=== PATIENT | female | born 1965 | race Caucasian/White ===

== ENCOUNTER 2025-03-04 16:48 | Emergency (ER) | payer BC ==
[~2025-03-04] VITALS: Ht 167.6 cm; Wt 90.9 kg
[2025-03-04 17:30] LABS: BASOPHILS # (AUTO) 0.1 X10'3 (0-0.2); BASOPHILS % (AUTO) 0.5 % (0-1); EOSINOPHILS # (AUTO) 0.2 X10'3 (0-0.9); EOSINOPHILS % (AUTO) 2.1 % (0-6); HEMATOCRIT 39.2 % (35.0-45.0); HEMOGLOBIN 13.4 g/dl (12.0-16.0); LYMPHOCYTES # (AUTO) 3.1 X10'3 (1.1-4.8); LYMPHOCYTES % (AUTO) 30.4 % (21-51); MEAN CORPUSCULAR HEMOGLOBIN 28.5 PG (27.0-31.0); MEAN CORPUSCULAR HGB CONC 34.2 g/dL (33.0-36.5); MEAN CORPUSCULAR VOLUME 83.4 FL (78-98); MEAN PLATELET VOLUME 8.3 FL (7.4-10.4); MONOCYTES # (AUTO) 0.7 X10'3 (0-0.9); MONOCYTES % (AUTO) 6.6 % (2-12); NEUTROPHILS # (AUTO) 6.1 X10'3 (1.8-7.7); NEUTROPHILS % (AUTO) 60.4 % (42-75); PLATELET COUNT 282 X10'3 (140-440); WHITE BLOOD COUNT 10.1 X10'3 (4.5-11.0)
[2025-03-04 17:38] LABS: ALBUMIN 3.8 G/DL (3.4-5.0); ANION GAP 12 (8-16); BLOOD UREA NITROGEN 21 MG/DL (7-18); BUN/CREATININE RATIO 17.9 (10.0-20.0); CALCIUM 9.3 MG/DL (8.5-10.1); CHLORIDE 103 MMOL/L (99-107); CREATININE 1.17 MG/DL (0.40-0.90); GLUCOSE 151 MG/DL (70-104); POTASSIUM 3.8 MMOL/L (3.5-5.1); SODIUM 141 MMOL/L (135-145); TOTAL CARBON DIOXIDE 25.6 MMOL/L (24-32); eCRCL 47 ML/MIN; eGFR 47 ML/MIN
--- NOTE | 2025-03-04 17:50 | RADIOLOGY REPORT ---
CHEST RADIOGRAPH Indication: Pain after fall Technique: Single frontal view of the chest was obtained Comparison: None FINDINGS: Lines and Tubes: None Lungs: No focal consolidation. Mild interstitial prominence. Pleura: No effusion. No pneumothorax. Cardiomediastinal contours: Mild cardiomegaly Bones: There appears to be acute fracture of the left humeral head Partially visualized cervical fixa tion hardware. IMPRESSION: Mild pulmonary vascular congestion . Acute mildly displaced fracture of the left lateral humeral head.
--- NOTE | 2025-03-04 17:52 | RADIOLOGY REPORT ---
CLINICAL INDICATION: Pain after fall TECHNIQUE: 3 radiographic views of the left humerus were obtained. Comparison: None FINDINGS/IMPRESSION: There is acute mildly displaced fracture of the left humerus greater tuberosity. Hyperdensity superior to the humeral head which may represent calcific tendinitis versus avulsed disp laced bony fragment of unknown chronicity.
[2025-03-04] MEDS: acetaminophen 325mg tablet PO ONE (17:59)
[2025-03-04] MEDS: traMADol 50MG tablet PO ONE (17:59)
[2025-03-04] MEDS: metoclopramide 10mg tablet PO ONE (18:00)
--- NOTE | 2025-03-04 18:10 | Physician Documentation ---
History of Present Illness ~ Chief Complaint: Mechanical Fall Stated Complaint: FALL Time Seen by MD: 17:02 Mode of Arrival: EMS HPI 59-year-old female patient brought to the emergency room by ambulance for ground level mechanical fall on left arm and sustained injury to the upper arm. Also complaining of ribcage pain bilaterally more so on the left side. No head strike and no other injuries. Medication Reconciliation Allergies: Coded Allergies: hydrocodone (Unverified Allergy, Unknown, VOMITING, 03/04/25) morphine (Unverified Allergy, Unknown, ABDOMINAL PAIN, 03/04/25) Scheduled Ondansetron 8mg ODT (Ondansetron Odt), 1 TAB PO Q6H Scheduled PRN Tramadol HCl (Tramadol HCl), 1 TAB PO Q6H PRN PRN for pain Review of Systems ROS As stated above in the HPI, otherwise all systems are reviewed and negative. Physical Exam Vital Signs: Temperature: 97.0, Source: Temporal, Heart Rate: 95, Respiratory Rate: 19, BP: 166/87, Pulse Oximetry: 93, Weight: 90.910 Physical Exam Reviewed vital signs and they are well within normal range. Const: Not in acute cardiopulmonary distress Head: Atraumatic Eyes: Normal Conjunctiva ENT: Normal External Ears, Nose and Mouth. Moist mucous membrane Neck: Full range of motion. No meningismus Resp: Clear to auscultation bilaterally. Normal work of breathing Cardio: Regular rate and rhythm, no murmurs. Skin well perfused Abd: Soft, non-tender, non-distended. Normal bowel sounds. No rebound or gu arding Skin: No petechiae or rashes. Warm and dry Back: No midline or flank tenderness Ext: No cyanosis, or edema Local examination of the left upper lung arm: Mild swelling and tenderness. Distal circulation sensation intact. And distal movements all intact Neuro: Awake and alert Psych: Normal Mood and Affect Progress Results/Orders Results/Orders Medications Received in ER Medications (Trade) Dose Ordered Sig/Elvis Route PRN Reason Start Time Stop Time Status Last Admin Dose Admin (Ultram tablet) 100 mg ONCE ONCE PO 03/04/25 17:40 03/04/25 17:41 DC 03/04/25 17:59 100 MG (Reglan tablet) 10 mg ONCE ONCE PO 03/04/25 17:40 03/04/25 17:41 DC 03/04/25 18:00 10 MG (Tylenol tablet) 650 mg ONCE ONCE PO 03/04/25 17:40 03/04/25 17:41 DC 03/04/25 17:59 650 MG Vital Signs 03/04/25 03/04/25 03/04/25 03/04/25 16:54 17:59 18:07 18:33 Temp 97.0 Pulse 95 95 Resp 16 19 22 16 B/P (MAP) 166/87 161/89 (113) Pulse Ox 93 96 Laboratory Tests Test 03/04/25 17:17 White Blood Count 10.1 Red Blood Count 4.70 Hemoglobin 13.4 Hematocrit 39.2 Mean Corpuscular Volume 83.4 Mean Corpuscular Hemoglobin 28.5 Mean Corpuscular Hemoglobin Concent 34.2 Red Cell Distribution Width 14.0 Platelet Count 282 Mean Platelet Volume 8.3 Neutrophils (%) (Auto) 60.4 Lymphocytes (%) (Auto) 30.4 Monocytes (%) (Auto) 6.6 Eosinophils (%) (Auto) 2.1 Basophils (%) (Auto) 0.5 Neutrophils # (Auto) 6.1 Lymphocytes # (Auto) 3.1 Monocytes # (Auto) 0.7 Eosinophils # (Auto) 0.2 Basophils # (Auto) 0.1 CBC Comment Sodium Level 141 Potassium Level 3.8 Chloride Level 103 Carbon Dioxide Level 25.6 Anion Gap 12 Blood Urea Nitrogen 21 H Creatinine 1.17 H Estimated GFR/1.73 m2 47 BUN/Creatinine Ratio 17.9 Glucose Level 151 H Calcium Level 9.3 Albumin 3.8 Chemistry Comments Medical Decision Making Findings During the physical examination, the findings suggestive of acute life- threatening condition such as JVD, tracheal deviation, acidotic breathing, noisy stridorous breath sounds, pulses paradoxus, muffled heart sounds, unequal breath sounds, abdominal rigidity and rebound tenderness, focal neurological deficits, cool clammy skin, severe hypotension, severe tachycardia or bradycardia are absent. The physical examination is consistent with the proximal humerus fracture with mild to moderate displacement. Left humerus x-ray shows fracture of the greater tuberosity with mild displacement. (radiology report.) Chest x-ray does not reveal any pneumothorax. No displaced rib fracture noted. Patient is medicated with tramadol and discharged from the emergency room with orthopedic follow up appointment with Dr. Torres who is on-call today. DISCLAIMER Inadvertent spelling and grammatical errors,inadvertent credit and collections analyst errors,syntax errors, grammatical errors, and spelling errors are likely due to EMR/dictation software use and do not reflect on the overall quality of patient care. Note that the electronic time recorded on this note does not necessarily reflect the actual time of the patient encounter. Departure Disposition: 01 HOME / SELF CARE / HOMELESS Impression: Primary Impression: Proximal humerus fracture Additional Impression: Chest wall contusion Additional Impression Text Discharge Instructions: Humerus Fracture Treated With Immobilization Additional Instructions: Thank you for coming to our Emergency Department today. Please keep the arm sling on at all times except for cleaning and changing clothing. Medication as instructed. Please call Dr. Torres' office, tomorrow morning. Please ask your nurse or provider if you have questions about your care today and do not leave until all your questions have been answered. Please use any medications given as directed and follow-up with your doctor (or the doctor you were referred to) in the next 1-3 days. Your primary care doctor can help to coordinate outpatient specialty care and provide authorization for specialty referral as needed. If you do not have a primary care doctor you may follow up at a [facility]. You may also use motrin and tylenol as needed for fever and/or pain unless instructed otherwise by your provider or nurse. Indications for more urgent follow-up have been discussed, but you may return to the Emergency Department at ANY time for any worrisome or worsening symptoms. Referrals: NO PRIMARY CARE PROVIDER (PCP) NATHEN TORRES MD Prescriptions Ondansetron 8mg ODT (Ondansetron Odt) 8 Mg Tab.rapdis 1 TAB PO Q6H for nausea/vomiting for 3 Days, #12 TAB 0 Refills Prov: ENRIQUE CHANEL MD 03/04/25 Tramadol HCl (Tramadol HCl) 50 Mg Tablet 1 TAB PO Q6H PRN PRN for pain for 7 Days, #28 TAB Prov: ENRIQUE CHANEL MD 03/04/25 Signature Scribe Signature: None Attestation: My dictation MARYLU COOK MD Mar 04, 2025 18:10 ENRIQUE CHANEL MD Mar 04, 2025 19:52
[2025-03-04] MEDS ORDERED: TRAM50TA2 PO (18:39)
[2025-03-04] MEDS ORDERED: ONDA-245 PO (18:39)
[2025-03-04 20:05] VITALS: BP 169/97; PULSE 98; RESP 16; TEMP 97.7; O2SAT 96
[2025-03-08] MEDS ORDERED: ONDA-245 PO (19:37)
[2025-03-08] MEDS ORDERED: HYDR-3965 PO (19:37)
[2025-03-09] MEDS ORDERED: HYDR-3965 PO (11:28)
== END 2025-03-04 20:25 | disposition home or self-care (01) ==
LOC: ER 16:48
DX: S42.302A Unspecified fracture of shaft of humerus, left arm, initial encounter for closed fracture (principal); W18.30XA Fall on same level, unspecified, initial encounter; S20.219A Contusion of unspecified front wall of thorax, initial encounter; Y93.89 Activity, other specified; Y92.89 Other specified places as the place of occurrence of the external cause; Y99.8 Other external cause status
CPT/HCPCS: 36415; 71045; 73060; 80048; 85025; 99284; A4565

== ENCOUNTER → 2025-03-08 | Emergency (ER) | payer BC ==
[~2025-03-08] VITALS: Ht 167.6 cm; Wt 89.5 kg
[~2025-03-08] MED LIST: HYDR-3965 PO; ONDA-245 PO; TRAM50TA2 PO
--- NOTE | 2025-03-08 16:15 | Physician Documentation ---
History of Present Illness ~ General Chief Complaint: See Chief Complaint Stated Complaint: MED REACTION Time Seen by MD: 18:16 OK to notify your PCP?: Yes Source: patient Mode of Arrival: POV Exam Limitations: no limitations History of Present Illness Initial Comments 59-year-old female presents after a fall a few days ago. She was seen here and given tramadol which is making her feel weird and lightheaded and she does not want to take it anymore. She has right rib pain but no fracture seen on X ray and a fractured left humerus with her arm in a sling. She is requesting extended time off of work as she is due to return tomorrow and medication for pain relief. Medication Reconciliation Allergies: Coded Allergies: dexamethasone (Verified Allergy, Unknown, 03/08/25) hydrocodone (Unverified Allergy, Unknown, VOMITING, 03/04/25) morphine (Unverified Allergy, Unknown, ABDOMINAL PAIN, 03/04/25) prednisone (Verified Allergy, Unknown, 03/08/25) Scheduled Ondansetron 8mg ODT (Ondansetron Odt), 1 TAB PO Q6H Scheduled PRN Hydrocodone Bit/Acetaminophen 5/325 MG ([place] 5/325 MG), 1 TAB PO TID PRN PRN for pain Discontinued Medications Tramadol HCl (Tramadol HCl), 1 TAB PO Q6H PRN PRN for pain Review of Systems All Other Systems at this time: Reviewed and Negative Physical Exam Physical Exam Vital Signs: RN Vital Signs have been reviewed: Yes, Temperature: 98.8, Source: Temporal, Heart Rate: 102, Respiratory Rate: 16, BP: 202/114, Pulse Oximetry: 95, Weight: 89.500 Pulse Oximetry Reflects: adequate oxygenation Physical Exam General: Alert, no distress. HEENT: No injection, moist mucous membranes. Neck: Full range of motion. Respiratory: No respiratory distress, equal chest rise and fall. Chest: No accessory muscle use. Cardiovascular: Regular rate and rhythm. Gastrointestinal: Nondistended. Extremities: Left arm in sling Neurologic: Oriented x4. Psychiatric: Normal mood and affect. Skin: Normal color, warm and dry. Progress Results/Orders Results/Orders Completed Orders - ALLA RIOS [employer] Hydrocodone/[place]ap 5/325mg Tab ([place] 5/32 (03/08/25 18:25) Ondansetron Disint. Tablet (Zofran Odt T (03/08/25 18:25) Medications Received in ER Medications (Trade) Dose Ordered Sig/Elvis Route PRN Reason Start Time Stop Time Status Last Admin Dose Admin ([place] 5/325mg tablet) 1 tab ONCE ONCE PO 03/08/25 18:25 03/08/25 18:29 DC 03/08/25 18:41 1 TAB (Zofran ODT tablet) 4 mg ONCE ONCE PO 03/08/25 18:25 03/08/25 18:29 DC 03/08/25 18:41 4 MG Vital Signs 03/08/25 03/08/25 03/08/25 16:02 18:41 19:48 Temp 98.8 98.8 Pulse 102 Resp 16 16 B/P (MAP) 202/114 Pulse Ox 95 Medical Decision Making Additional info obtained from: old records, family Findings 59-year-old female presenting with pre-existing left humerus fracture at pre- existing right rib contusions in his requesting a different medication other than tramadol as she does not like the way it makes her feel. Upon further discussion the hydrocodone and morphine causes nausea and vomiting. We will gi ve a here in the department along with some Zofran and see if she has any reaction. She has been monitored for over 30 minutes and has not had any nausea or adverse reaction and is requesting to be discharged home. She is also requesting to have further days off of work but this is a work comp case and there time expires tomorrow. I will give her 3 days off of work and she needs to follow up with work comp doctor to continue care. Return back here for any new or worsening symptoms. Differential Diagnosis Medication reaction, inadequate pain relief, overdose, medication nonadherence Departure Disposition: HOME / SELF CARE / HOMELESS Impression: Primary Impression: Proximal humerus fracture Additional Impression: Fall Condition: Stable Additional Instructions: Please continue care with your work comp doctor. You can use ibuprofen or Tylenol for pain relief as well you have been prescribed [place] with Zofran we always taken together for pain relief as needed. Mindful not to exceed 4000 mg of Tylenol in a 24 hour.. Departure Forms: Excuse form Work or School Excuse beginning now through the following date: Mar 11, 2025 Referrals: NO PRIMARY CARE PROVIDER (PCP) Prescriptions Hydrocodone Bit/Acetaminophen 5/325 MG ([place] 5/325 MG) 5 Mg/325 Mg Tablet 1 TAB PO TID PRN PRN for pain for 5 Days, #15 TAB Prov: ALLA RIOS [facility] 03/08/25 Ondansetron 8mg ODT (Ondansetron Odt) 8 Mg Tab.rapdis 1 TAB PO Q6H for nausea/vomiting for 3 Days, #12 TAB 0 Refills Prov: ALLA RIOS [facility] 03/08/25 Education Educated: Patient Educated regarding: diagnosis, treatment, prognosis Additional Comment Medical Screen Exam This patient recieved a medical screening examination. After reviewing the individual's medical complaints with presenting symptoms and performing an appropriate physical examination, it was determined that no immediate life- threatening emergency medical condition is present. This individual is also not a women having contractions. Signature Scribe Signature: . Attestation: Scribed for Emergency,Department by Alla Adams NP . 03/08/25 18:26 Parts of this note were created using [employer] voice recognition software program. While efforts were made to correct any mistakes made by this voice recognition software program, nonsensical phrases may remain in this note. In addition, there may be errors and syntax, grammar, content and spelling. ALLA RIOS [facility] Mar 08, 2025 16:15
[2025-03-08] MEDS: HYDROcodone/acetaminophen 5mg/325mg tablet PO ONE (18:41)
[2025-03-08] MEDS: ondansetron 4mg rapidly disintigrating tab PO ONE (18:41)
[2025-03-08 19:48] VITALS: TEMP 98.8
== END | disposition home or self-care (01) ==
LOC: ER 15:29
DX: S42.202A Unspecified fracture of upper end of left humerus, initial encounter for closed fracture (principal); R51.9 Headache, unspecified; R07.9 Chest pain, unspecified; Z88.5 Allergy status to narcotic agent; Z88.8 Allergy status to other drugs, medicaments and biological substances; W19.XXXA Unspecified fall, initial encounter; Y93.89 Activity, other specified; Y92.89 Other specified places as the place of occurrence of the external cause; Y99.8 Other external cause status
CPT/HCPCS: 99283

== ENCOUNTER 2025-03-13 09:37 | Emergency (ER) | payer BC, OTHER ==
[~2025-03-13] VITALS: Ht 167.6 cm; Wt 90.9 kg
[~2025-03-13 09:37] MED LIST changes: -TRAM50TA2 PO
[2025-03-13 09:54] VITALS: BP 155/82; PULSE 86; RESP 16; TEMP 97.9; O2SAT 97
[2025-03-13] MEDS ORDERED: HYDR-3972 PO (10:18)
--- NOTE | 2025-03-13 10:20 | Physician Documentation ---
History of Present Illness ~ Chief Complaint: Arm Pain Stated Complaint: MED REFILL Time Seen by MD: 10:04 OK to notify your PCP?: Yes Source: patient Mode of Arrival: POV Exam Limitations: no limitations HPI 59-year-old female who is here with left humeral fracture states that she is going to run out of her pain medication today and she is hoping she can get a refill. She states she does not have an appointment to establish with the orth opedist until the February 15. Patient states that she had a difficult time getting the pain medication because she reports the pharmacies where all out as well so she is wondering if it can be switched to something that has less chance of being out of the pharmacy. Tetanus within 5 years: No Medication Reconciliation Allergies: Coded Allergies: dexamethasone (Verified Allergy, Unknown, 03/08/25) hydrocodone (Unverified Allergy, Unknown, VOMITING, 03/04/25) morphine (Unverified Allergy, Unknown, ABDOMINAL PAIN, 03/04/25) prednisone (Verified Allergy, Unknown, 03/08/25) Scheduled Ondansetron 8mg ODT (Ondansetron Odt), 1 TAB PO Q6H Scheduled PRN Hydrocodone Bit/Acetaminophen 5/325 MG ([place] 5/325 MG), 1 TAB PO TID PRN PRN for pain Discontinued Medications Tramadol HCl (Tramadol HCl), 1 TAB PO Q6H PRN PRN for pain Past Medical History Past Medical History: No Pertinent History Review of Systems All Other Systems at this time: Reviewed and Negative Physical Exam Vital Signs: Temperature: 97.9, Source: Oral, Heart Rate: 86, Respiratory Rate: 16, BP: 155/82, Pulse Oximetry: 97, Weight: 90.910 Physical Exam General Appearance: Alert, WD/WN. NAD. HEENT: NCAT, PERRL, EOMI. Neck: Supple, trachea midline. Peripheral vascular: Radial pulses 2+ bilaterally Lungs: Breathing unlabored Extremities: Left arm is in a sling Skin: Warm/dry, normal color Neurological: Alert and oriented x4, normal gait. Psychiatric: Affect congruent with mood. Progress Results/Orders Results/Orders Vital Signs 03/13/25 09:54 Temp 97.9 Pulse 86 Resp 16 B/P (MAP) 155/82 Pulse Ox 97 Medical Decision Making Shoulder Diff Dx:Consideration: Include: AC separation, Adhesive capsulitis, Arthritis, Bicipital tendonitis, Calcific tendonitis, Cervical disc disease, Contusion, Dislocation, Fracture-humerus, Fracture-scapula, Fracture-clavicle, GB disease, Hematoma, Impingement syndrome, Myocardial infarction, Neurovascular injury, Open fracture-humerus, Open fracture-scapula, Open fracture-clavicle, Rotator cuff injury, SC dislocatoin, Sprain, Subacromial bursitis, Other Departure Time of Disposition: 10:16 Disposition: 01 HOME / SELF CARE / HOMELESS Impression: Primary Impression: Humeral fracture Qualified Codes: S42.202D - Unspecified fracture of upper end of left humerus, subsequent encounter for fracture with routine healing Additional Impression: Shoulder pain, left Qualified Codes: M25.512 - Pain in left shoulder Condition: Stable Discharge Instructions: Extremity Fracture Additional Instructions: Follow up with orthopedist as you are already scheduled on the I refill your pain medication and I changed it to [place] 10/325mg as I think these are less likely to be out of the pharmacy. Referrals: NO PRIMARY CARE PROVIDER (PCP) Prescriptions Hydrocodone Bit/Acetaminophen (Hydrocodon-Acetaminophn 10-325 tablet) 10mg- 325mg Tablet 1 TAB PO TID PRN PRN for pain for 5 Days, #15 TAB Prov: FLACA SANDS 03/13/25 Education Educated: Patient Educated regarding: diagnosis, treatment, need for follow up Signature Scribe Signature: damaris Attestation: FLACA Babb Mar 13, 2025 10:20
== END 2025-03-13 10:24 | disposition home or self-care (01) ==
LOC: ER 09:38
DX: S42.392D Other fracture of shaft of left humerus, subsequent encounter for fracture with routine healing (principal); M25.512 Pain in left shoulder; Z88.5 Allergy status to narcotic agent; Z88.8 Allergy status to other drugs, medicaments and biological substances; Z79.899 Other long term (current) drug therapy; X58.XXXD Exposure to other specified factors, subsequent encounter
CPT/HCPCS: 99283